=== PATIENT | male | born 1940 | race African-American/Black ===

== ENCOUNTER → 2019-04-05 | Outpatient (CLI) | payer MEDICARE ==
--- NOTE | 2019-04-05 15:12 | RAD ---
Indication: Left-sided back pain. TECHNIQUE: 3 views of the lumbar spine and 3 views of the hip COMPARISON: None FINDINGS: There is very subtle dextroscoliosis of the upper lumbar spine. No compression deformities. Multilevel intervertebral disc space narrowing seen with endplate irregularities and osteophyte formation worse at L4-L5 and L5-S1 with associated lower lumbar spine facet arthropathy. SI joints are within normal limits. There are 5 lumbar type vertebral bodies. Bilateral hip joints symmetric with mild joint space narrowing. No acute fractures or dislocation. IMPRESSION: 1. Multilevel degenerative disc disease worse in the lower lumbar spine with associated facet arthropathy. 2. Mild bilateral hip joint osteoarthritis. Electronically signed by: Omar Posey DO (04/05/2019 3:08 PM) [facility] [place]
== END | disposition home or self-care (01) ==
LOC: RAD 11:19
PROVIDERS: ATTEND Physician Assistant Surgical
DX: M51.36 Other intervertebral disc degeneration, lumbar region (principal); M48.07 Spinal stenosis, lumbosacral region; M16.0 Bilateral primary osteoarthritis of hip; M41.86 Other forms of scoliosis, lumbar region; M25.78 Osteophyte, vertebrae
CPT/HCPCS: 72100; 73502

== ENCOUNTER → 2019-10-28 | Outpatient (CLI) | payer MEDICARE ==
--- NOTE | 2019-10-28 18:56 | KCIC ---
PROCEDURE: RENAL COMPLETE BILATERAL STUDY DATE: 10/28/2019 CLINICAL INDICATION / HISTORY: Left flank pain and microscopic hematuria. TECHNIQUE: Real time ultrasound with hard copy imaging was performed. COMPARISON: No relevant comparisons currently available FINDINGS: Both kidneys contain multiple cortical cysts, largest in the superior pole right kidney measuring 4.5 x 3.7 x 5.0 cm. Largest in the left kidney at the inferior pole measures 7.2 x 6.7 x 6.5 cm.. No solid mass, hydronephrosis or kidney stone is identified. The right kidney measures 9.7 x 5.1 x 5.7 cm and the left kidney measures 13.7 x 5.5 x 5.3 cm. The abdominal aorta is normal in caliber, measuring 2.6, 2.2 and 1.6 cm in the proximal mid and distal portions respectively. Scattered arterial calcifications in abdominal aorta are present. The Inferior vena cava is unremarkable. No abnormal fluid collections are demonstrated. The bladder was empty at the time of imaging. IMPRESSION: 1. Multiple bilateral renal cortical cysts. No solid renal masses or hydronephrosis and no kidney stones are identified. 2. More detailed evaluation by CT stone protocol or renal mass protocol CT with and without IV contrast could be considered if clinically warranted. Electronically signed by: Chante Stovall MD (10/28/2019 6:53 PM) [facility]
== END | disposition home or self-care (01) ==
LOC: KCIC US 13:02
PROVIDERS: ATTEND Family Medicine
DX: N28.1 Cyst of kidney, acquired (principal); I70.0 Atherosclerosis of aorta
CPT/HCPCS: 76770

== ENCOUNTER → 2020-03-28 | Outpatient (CLI) | payer MEDICARE ==
--- NOTE | 2020-03-28 16:53 | KCIC ---
Examination: RENAL COMPLETE BILATERAL History: Polycystic kidney disease Comparison/Correlation: 10/28/2019 renal ultrasound Findings: Renal ultrasound exam was performed. Right kidney measures 11.6 cm x 6.9 cm x 6.1 cm. Left kidney measures 10.6 cm x 5.3 cm x 5.3 cm. Multiple bilateral renal cysts are present. The largest on the right is at the inferior pole measuring up to 5.8 cm diameter. The largest on the left is present at the interpolar region measuring up to 7.4 cm diameter. These appear to be simple cysts. No other cysts present. Internal echoes are otherwise somewhat complex in appearance in the interval previously at the right renal upper pole. No hydronephrosis or findings of nephrolithiasis. Urinary bladder is unremarkable with prevoid volume of 103 cc. Bilateral ureteral jets noted. Prostate gland is enlarged measuring up to 4.1 cm. Impression: Right renal upper pole cysts are present with convex appearance interval. This may represent interval hemorrhage or other debris. No definite solid component delineated. Interval follow-up ultrasound examination or CT without with contrast in 4-6 months to assess stability considered. Electronically signed by: Samy Elias MD (03/28/2020 4:50 PM) [id number]
== END | disposition home or self-care (01) ==
LOC: KCIC US 14:00
PROVIDERS: ATTEND Family Medicine
DX: N28.1 Cyst of kidney, acquired (principal); N40.0 Benign prostatic hyperplasia without lower urinary tract symptoms
CPT/HCPCS: 76770

== ENCOUNTER → 2021-03-06 | Outpatient (CLI) | payer MEDICARE ==
[~2021-03-06] MED LIST: FINA5TAB4 PO; GADOTERATE 7.5 MMOL/15ML VIAL. IVP ONE; HYDR-2145 PO; LOSA100T14 PO; METO-247 PO; PRAV40TA2 PO; TAMS0.4C97 PO
--- NOTE | 2021-03-06 13:02 | KCIC ---
Examination: MRI abdomen with and without IV contrast. INDICATION: Renal cysts. Follow-up examination. COMPARISON: Ultrasound dated 03/28/2020 and 10/28/2019. TECHNIQUE: Multiplanar multisequence MRI of the abdomen performed without and with IV contrast. FINDINGS: Normal morphology and size of the liver with homogeneous enhancement. No steatosis or iron deposition . No suspicious focal hepatic lesion. Normal spleen. Mildly atrophic pancreatic parenchyma with fat i nfiltration. No pancreatic ductal dilation. Unremarkable gallbladder. No biliary ductal dilation. The re is a 2.8 cm left adrenal nodule demonstrates drop signal on out of phase sequence, compatible with lipid rich adenoma. Normal right adrenal gland. Normal symmetric enhancement of the kidneys with no hydronephrosis. Redemonstrated innumerable variab le size simple and mildly complex bilateral renal cysts; some of which demonstrate multiple thin inte rnal septations, for example the interlobar left complex cyst measures 5.8 x 4.4 x 5.0 cm. No enhanci ng soft tissue component. No bowel dilation. No abdominal lymphadenopathy by size criteria. Normal caliber abdominal aorta. Mes enteric arteries and portal vein are patent. No ascites. No suspicious osseous lesion. Unremarkable v isualized lung bases. IMPRESSION: 1. Innumerable variable size simple and mildly complex bilateral renal cysts ranging from Bosniak typ e I to type IIF cysts as seen in the interpolar left kidney. Continues attention on follow-up examina tion is recommended. 2. Benign 2.8 cm adenoma in the left adrenal gland. No follow-up is required. Electronically signed by: Marjorie Olmos MD (03/06/2021 1:00 PM) [id number]
== END ==
LOC: KCIC MRI 09:05
PROVIDERS: ATTEND Internal Medicine Nephrology
DX: N28.1 Cyst of kidney, acquired (principal)
CPT/HCPCS: 74183; 82565; A9575

== ENCOUNTER → 2021-09-17 | Outpatient (CLI) | payer MEDICARE ==
[~2021-09-17] MED LIST changes: -GADOTERATE 7.5 MMOL/15ML VIAL. IVP ONE
--- NOTE | 2021-09-17 08:16 | RAD ---
EXAM: Lower extremity arterial Doppler sonogram with ankle-brachial indices (KENNY). HISTORY: Cold sensation. Peripheral vascular disease. TECHNIQUE: Doppler sonographic evaluation of the lower extremities was performed and pressure reading s were assessed. FINDINGS: Right brachial pressure: 149 mmHg Left brachial pressure: 149 mmHg Right ankle pressure: 187 mmHg Right KENNY: 1.3 Right ankle pressure: 184 mmHg Right KENNY: 1.2 IMPRESSION: Normal bilateral ankle-brachial indices. Electronically signed by: Anjelica Hurtado MD (09/17/2021 8:14 AM) [id number]
== END ==
LOC: US 06:48
PROVIDERS: ATTEND Family Medicine
DX: R20.8 Other disturbances of skin sensation (principal); I73.9 Peripheral vascular disease, unspecified
CPT/HCPCS: 93922